=== PATIENT | male | born 1975 | race Caucasian/White ===

== ENCOUNTER 2022-09-19 10:43 | Emergency (ER) | payer OTHER ==
[~2022-09-19] VITALS: Ht 167.6 cm; Wt 110.0 kg
[2022-09-19 11:01] VITALS: TEMP 98.9
[2022-09-19] MEDS ORDERED: GABA-1181 PO (11:07)
[2022-09-19] MEDS ORDERED: EZET10TA57 PO (11:07)
[2022-09-19] MEDS ORDERED: IBUP-2077 PO (11:07)
[2022-09-19] MEDS ORDERED: ATOR40TA71 PO (11:07)
[2022-09-19] MEDS ORDERED: KETOROLAC TROMETHAMINE 30 MG/ML VIAL IM ONE (11:15)
[2022-09-19] MEDS ORDERED: DOXYCYCLINE HYCLATE 100 MG TABLET PO ONE (11:15)
[2022-09-19 11:50] VITALS: BP 125/66; PULSE 84; RESP 16
[2022-09-19] MEDS ORDERED: ACET-3385 PO (12:09)
[2022-09-19] MEDS ORDERED: DOXY-354 PO (12:09)
[2022-09-19] MEDS ORDERED: IBUP-1492 PO (12:09)
== END 2022-09-19 13:29 | disposition home or self-care (01) ==
LOC: EMS 10:46
DX: S93.401A Sprain of unspecified ligament of right ankle, initial encounter (principal); S66.315A Strain of extensor muscle, fascia and tendon of left ring finger at wrist and hand level, initial encounter; E11.9 Type 2 diabetes mellitus without complications; I10 Essential (primary) hypertension; F15.90 Other stimulant use, unspecified, uncomplicated; Z88.2 Allergy status to sulfonamides; Z88.5 Allergy status to narcotic agent; W19.XXXA Unspecified fall, initial encounter; Y93.89 Activity, other specified; Y92.89 Other specified places as the place of occurrence of the external cause; Y99.8 Other external cause status
CPT/HCPCS: 99284; 29515; 73110; 73130; 73610; 73630; 29125; 96372; J1885